=== PATIENT | female | born 1945 | race Caucasian/White ===

== ENCOUNTER 2017-01-03 16:04 | Emergency (ER) | payer MEDICARE ==
[~2017-01-03] VITALS: Ht 170.2 cm; Wt 65.0 kg
[2017-01-03 16:18] VITALS: BP 122/57; PULSE 64; RESP 15; TEMP 98.2; O2SAT 95
--- NOTE | 2017-01-03 17:13 | PD ---
HPI Chief Complaint: Abdominal Pain Time Seen by Provider: 17:13 Travel History International Travel<30 days: No Contact w/Intl Traveler<30days: No Traveled to known affect area: No History of Present Illness HPI 71-year-old female with no significant medical history presents to the emergency department for evaluation. Patient states that [place] the [place] and had barely anything to drink. She went for dinner and had a Sangria. Following this she felt lightheaded. She had to sit down. She states she "just didn't feel right." After fluid resuscitation in route by [facility], the patient states she "feels great." She has also been constipated. She feels that she has had some stomach cramping because of this. Denies any nausea or vomiting. No chest pain or tightness. No difficulty breathing. She is visiting from [place] and is supposed to go home tomorrow. She has no other symptoms reported this time. [facility] Past Medical History Medical History: Denies Significant Hx Social History Alcohol Use: Yes Tobacco Use: No Substance Use: No Allergies-Medications (Allergen,Severity, Reaction): Coded Allergies: Codeine (Verified Allergy, Unknown, 01/03/17) Review of Systems Except as stated in HPI: all other systems reviewed are Neg Physical Exam Narrative GENERAL: Well-nourished female patient, ambulatory and in no acute distress SKIN: Focused skin assessment warm/dry. HEAD: Atraumatic. Normocephalic. EYES: Pupils equal and round. No scleral icterus. No injection or drainage. ENT: No nasal bleeding or discharge. Mucous membranes pink and moist. NECK: Trachea midline. No JVD. CARDIOVASCULAR: Regular rate and rhythm. No murmur appreciated. RESPIRATORY: No accessory muscle use. Clear to auscultation. Breath sounds equal bilaterally. GASTROINTESTINAL: Abdomen soft, non-tender, nondistended. Hepatic and splenic margins not palpable. MUSCULOSKELETAL: No obvious deformities. No clubbing. No cyanosis. No edema. NEUROLOGICAL: Awake and alert. No obvious cranial nerve deficits. Motor grossly within normal limits. Normal speech. PSYCHIATRIC: Appropriate mood and affect; insight and judgment normal. Data Data Last Documented VS Vital Signs Date Time Temp Pulse Resp B/P Pulse Ox O2 Delivery O2 Flow Rate FiO2 01/03/17 16:18 98.2 64 15 122/57 95 Orders Basic Metabolic Panel (Bmp) (01/03/17 17:12) Complete Blood Count With Diff (01/03/17 17:12) Lipase (01/03/17 17:12) Prothrombin Time / Inr (Pt) (01/03/17 17:12) Act Partial Throm Time (Ptt) (01/03/17 17:12) Urinalysis - C+S If Indicated (01/03/17 17:12) Iv Access Insert/Monitor (01/03/17 17:12) Ecg Monitoring (01/03/17 17:12) Oximetry (01/03/17 17:12) Sodium Chloride 0.9% Flush (Ns Flush) (01/03/17 17:15) Electrocardiogram (01/03/17 17:12) Ckmb (Isoenzyme) Profile (01/03/17 17:12) Troponin I (01/03/17 17:12) CKMB (01/03/17 17:10) CKMB% (01/03/17 17:10) Potassium Chloride Powder (Kcl Powder) (01/03/17 18:30) Orthostatic Blood Pressure (01/03/17 18:19) Potassium Chloride (Kcl) (01/03/17 18:45) Labs Laboratory Tests Test 01/03/17 01/03/17 17:10 17:14 White Blood Count 5.8 TH/MM3 Red Blood Count 4.23 MIL/MM3 Hemoglobin 11.8 GM/DL Hematocrit 35.1 % Mean Corpuscular Volume 83.2 FL Mean Corpuscular Hemoglobin 27.9 PG Mean Corpuscular Hemoglobin 33.5 % Concent Red Cell Distribution Width 14.3 % Platelet Count 160 TH/MM3 Mean Platelet Volume 9.6 FL Neutrophils (%) (Auto) 68.7 % Lymphocytes (%) (Auto) 20.5 % Monocytes (%) (Auto) 9.0 % Eosinophils (%) (Auto) 1.2 % Basophils (%) (Auto) 0.6 % Neutrophils # (Auto) 4.0 TH/MM3 Lymphocytes # (Auto) 1.2 TH/MM3 Monocytes # (Auto) 0.5 TH/MM3 Eosinophils # (Auto) 0.1 TH/MM3 Basophils # (Auto) 0.0 TH/MM3 CBC Comment DIFF FINAL Differential Comment Prothrombin Time 10.9 SEC Prothromb Time International 1.0 RATIO Ratio Activated Partial 23.8 SEC Thromboplast Time Sodium Level 144 MEQ/L Potassium Level 2.8 MEQ/L Chloride Level 109 MEQ/L Carbon Dioxide Level 25.1 MEQ/L Anion Gap 10 MEQ/L Blood Urea Nitrogen 15 MG/DL Creatinine 0.71 MG/DL Estimat Glomerular Filtration 81 ML/MIN Rate Random Glucose 92 MG/DL Calcium Level 8.1 MG/DL Total Creatine Kinase 127 U/L Creatine Kinase MB 2.5 NG/ML Troponin I LESS THAN 0.02 NG/ML Lipase 119 U/L Urine Color YELLOW Urine Turbidity CLEAR Urine pH 5.5 Urine Specific [place] 1.018 Urine Protein NEG mg/dL Urine Glucose (UA) NEG mg/dL Urine Ketones NEG mg/dL Urine Occult Blood NEG Urine Nitrite NEG Urine Bilirubin NEG Urine Urobilinogen LESS THAN 2.0 MG/DL Urine Leukocyte Esterase NEG Urine RBC 1 /hpf Urine WBC 1 /hpf Urine Hyaline Casts 2 /lpf Microscopic Urinalysis Comment CULT NOT INDICATED MDM Medical Decision Making Medical Screen Exam Complete: Yes Emergency Medical Condition: Yes Medical Record Reviewed: Yes Differential Diagnosis Electrolyte abnormality versus syncope versus near syncope versus dehydration versus heat exhaustion Narrative Course 71-year-old female presents to the emergency department for evaluation. Patient appears well and without distress. Her vital signs are stable. Exam is benign. Laboratory Tests Test 01/03/17 01/03/17 17:10 17:14 White Blood Count 5.8 TH/MM3 Red Blood Count 4.23 MIL/MM3 Hemoglobin 11.8 GM/DL Hematocrit 35.1 % Mean Corpuscular Volume 83.2 FL Mean Corpuscular Hemoglobin 27.9 PG Mean Corpuscular Hemoglobin 33.5 % Concent Red Cell Distribution Width 14.3 % Platelet Count 160 TH/MM3 Mean Platelet Volume 9.6 FL Neutrophils (%) (Auto) 68.7 % Lymphocytes (%) (Auto) 20.5 % Monocytes (%) (Auto) 9.0 % Eosinophils (%) (Auto) 1.2 % Basophils (%) (Auto) 0.6 % Neutrophils # (Auto) 4.0 TH/MM3 Lymphocytes # (Auto) 1.2 TH/MM3 Monocytes # (Auto) 0.5 TH/MM3 Eosinophils # (Auto) 0.1 TH/MM3 Basophils # (Auto) 0.0 TH/MM3 CBC Comment DIFF FINAL Differential Comment Prothrombin Time 10.9 SEC Prothromb Time International 1.0 RATIO Ratio Activated Partial 23.8 SEC Thromboplast Time Sodium Level 144 MEQ/L Potassium Level 2.8 MEQ/L Chloride Level 109 MEQ/L Carbon Dioxide Level 25.1 MEQ/L Anion Gap 10 MEQ/L Blood Urea Nitrogen 15 MG/DL Creatinine 0.71 MG/DL Estimat Glomerular Filtration 81 ML/MIN Rate Random Glucose 92 MG/DL Calcium Level 8.1 MG/DL Total Creatine Kinase 127 U/L Creatine Kinase MB 2.5 NG/ML Troponin I LESS THAN 0.02 NG/ML Lipase 119 U/L Urine Color YELLOW Urine Turbidity CLEAR Urine pH 5.5 Urine Specific [place] 1.018 Urine Protein NEG mg/dL Urine Glucose (UA) NEG mg/dL Urine Ketones NEG mg/dL Urine Occult Blood NEG Urine Nitrite NEG Urine Bilirubin NEG Urine Urobilinogen LESS THAN 2.0 MG/DL Urine Leukocyte Esterase NEG Urine RBC 1 /hpf Urine WBC 1 /hpf Urine Hyaline Casts 2 /lpf Microscopic Urinalysis Comment CULT NOT INDICATED CBC is without acute concern. BMP is hypokalemia 2.8. This is repleted with 60 mEq of potassium. Otherwise BMP is without acute concern. I discussed the patient my attending physician Dr. Huffman who also assessed the patient and reviewed lab findings. Patient will be discharged home with potassium prescription. She agrees to return immediately with any acute worsening of symptoms. Diagnosis Primary Impression: Syncope, near Additional Impression: Hypokalemia Referrals: Primary Care Physician Patient Instructions: General Instructions, Hypokalemia (ED) Additional Instructions: Follow-up with your primary care provider Repeat potassium in 2-3 days Maintain adequate oral hydration Return immediately with any acute worsening of symptoms Med/Other Pt SpecificInfo: Prescription(s) given Disposition: 01 DISCHARGE HOME Condition: Stable Christina Espinoza DAWNA Jan 03, 2017 17:13
[2017-01-03] MEDS ORDERED: SODIUM CHLORIDE 0.9% FLUSH 10 ML FLUSH IV FLUSH PRN (17:15)
[2017-01-03 17:38] LABS: BLOOD, URINE NEG (NEG); COMMENT (UR) CULT NOT INDICATED; CULTURE IF INDICATED CULT NOT INDICATED; GLUCOSE,URINE NEG (NEG); HYALINE CAST, URINE 2 /lpf (RARE); KETONE, URINE NEG (NEG); NITRITE,URINE NEG (NEG); PH, URINE 5.5 (5.0-8.5); URINE COLOR YELLOW (YELLW/STRAW)
[2017-01-03 17:39] LABS: BASOPHIL % 0.6 % (0.0-2.0); EOSINOPHIL # 0.1 TH/MM3 (0-0.4); EOSINOPHIL % 1.2 % (0.0-4.0); HEMATOCRIT 35.1 % (35.0-46.0); HEMO FLAGS DIFF FINAL; LYMPH % 20.5 % (9.0-44.0); LYMPHOCYTE # 1.2 TH/MM3 (1.0-4.8); MEAN CELL VOLUME 83.2 FL (80.0-100.0); MEAN CORPUSCULAR HEMOGLOBIN 27.9 PG (27.0-34.0); MEAN CORPUSCULAR HGB CONC 33.5 % (32.0-36.0); NEUT % 68.7 % (16.0-70.0); PLATELET COUNT 160 TH/MM3 (150-450); RED BLOOD COUNT 4.23 MIL/MM3 (4.00-5.30); RED CELL DISTRIBUTION WIDTH 14.3 % (11.6-17.2); WHITE BLOOD COUNT 5.8 TH/MM3 (4.0-11.0)
[2017-01-03 17:48] LABS: APTT (PATIENT) 23.8 SEC (24.3-30.1); PROTHROMBIN TIME - PATIENT 10.9 SEC (9.8-11.6)
[2017-01-03 17:57] LABS: ANION GAP 10 MEQ/L (5-15); BICARBONATE 25.1 MEQ/L (21.0-32.0); BLOOD UREA NITROGEN 15 MG/DL (7-18); CHLORIDE 109 MEQ/L (98-107); GLOMERULAR FILTRATION RATE 81 ML/MIN (>89); SODIUM (NA) 144 MEQ/L (136-145)
[2017-01-03 17:58] LABS: CREATINE KINASE 127 U/L (26-192)
[2017-01-03 18:15] LABS: POTASSIUM 2.8 MEQ/L (3.5-5.1)
[2017-01-03 18:30] LABS: CKMB 2.5 NG/ML (0.5-3.6)
[2017-01-03] MEDS ORDERED: POTASSIUM CHLORIDE 20 MEQ PWD PACKET PO ONE (18:30)
[2017-01-03] MEDS ORDERED: POTA10TA2 PO (18:37)
--- NOTE | 2017-01-03 18:37 | PD ---
Data Data Last Documented VS Vital Signs Date Time Temp Pulse Resp B/P Pulse Ox O2 Delivery O2 Flow Rate FiO2 01/03/17 16:18 98.2 64 15 122/57 95 Orders Basic Metabolic Panel (Bmp) (01/03/17 17:12) Complete Blood Count With Diff (01/03/17 17:12) Lipase (01/03/17 17:12) Prothrombin Time / Inr (Pt) (01/03/17 17:12) Act Partial Throm Time (Ptt) (01/03/17 17:12) Urinalysis - C+S If Indicated (01/03/17 17:12) Iv Access Insert/Monitor (01/03/17 17:12) Ecg Monitoring (01/03/17 17:12) Oximetry (01/03/17 17:12) Sodium Chloride 0.9% Flush (Ns Flush) (01/03/17 17:15) Electrocardiogram (01/03/17 17:12) Ckmb (Isoenzyme) Profile (01/03/17 17:12) Troponin I (01/03/17 17:12) CKMB (01/03/17 17:10) CKMB% (01/03/17 17:10) Potassium Chloride Powder (Kcl Powder) (01/03/17 18:30) Orthostatic Blood Pressure (01/03/17 18:19) Potassium Chloride (Kcl) (01/03/17 18:45) Labs Laboratory Tests Test 01/03/17 01/03/17 17:10 17:14 White Blood Count 5.8 TH/MM3 Red Blood Count 4.23 MIL/MM3 Hemoglobin 11.8 GM/DL Hematocrit 35.1 % Mean Corpuscular Volume 83.2 FL Mean Corpuscular Hemoglobin 27.9 PG Mean Corpuscular Hemoglobin 33.5 % Concent Red Cell Distribution Width 14.3 % Platelet Count 160 TH/MM3 Mean Platelet Volume 9.6 FL Neutrophils (%) (Auto) 68.7 % Lymphocytes (%) (Auto) 20.5 % Monocytes (%) (Auto) 9.0 % Eosinophils (%) (Auto) 1.2 % Basophils (%) (Auto) 0.6 % Neutrophils # (Auto) 4.0 TH/MM3 Lymphocytes # (Auto) 1.2 TH/MM3 Monocytes # (Auto) 0.5 TH/MM3 Eosinophils # (Auto) 0.1 TH/MM3 Basophils # (Auto) 0.0 TH/MM3 CBC Comment DIFF FINAL Differential Comment Prothrombin Time 10.9 SEC Prothromb Time International 1.0 RATIO Ratio Activated Partial 23.8 SEC Thromboplast Time Sodium Level 144 MEQ/L Potassium Level 2.8 MEQ/L Chloride Level 109 MEQ/L Carbon Dioxide Level 25.1 MEQ/L Anion Gap 10 MEQ/L Blood Urea Nitrogen 15 MG/DL Creatinine 0.71 MG/DL Estimat Glomerular Filtration 81 ML/MIN Rate Random Glucose 92 MG/DL Calcium Level 8.1 MG/DL Total Creatine Kinase 127 U/L Creatine Kinase MB 2.5 NG/ML Troponin I LESS THAN 0.02 NG/ML Lipase 119 U/L Urine Color YELLOW Urine Turbidity CLEAR Urine pH 5.5 Urine Specific [place] 1.018 Urine Protein NEG mg/dL Urine Glucose (UA) NEG mg/dL Urine Ketones NEG mg/dL Urine Occult Blood NEG Urine Nitrite NEG Urine Bilirubin NEG Urine Urobilinogen LESS THAN 2.0 MG/DL Urine Leukocyte Esterase NEG Urine RBC 1 /hpf Urine WBC 1 /hpf Urine Hyaline Casts 2 /lpf Microscopic Urinalysis Comment CULT NOT INDICATED MDM Medical Record Reviewed: Yes Supervised Visit with ANNMARIE: Yes Narrative Course I, Dr. Huffman, have reviewed the advance practice practitioner's documentation and am in agreement unless documented below, met with the patient face to face, made the diagnosis, and the medical decision making was done by me. *My assessment and Findings: EKG reveals a sinus rhythm at a rate of [address] changes CBC & BMP Diagram 01/03/17 17:10 The patient received 60 mEq potassium. Patient had 1700 cc crystalloid en route to the ER. She was reassessed by me about 6:30 PM and was resting comfortably in bed using her scar. She Had No Complaint. Patient ambulated throughout the trauma upon without any difficulty. She has a primary care provider, and a copy of her EKG. She'll follow-up upon returning home. Potassium prescription. She is ready for discharge. Diagnosis Primary Impression: Syncope, near Additional Impression: Hypokalemia Referrals: Primary Care Physician 2 days Additional Instruction: You have a choice when it comes to health care, and we are glad that you chose [facility]. Hopefully, we have met your expectations on today's visit. You are welcome to return to [facility] at any time, as we are committed to meeting the health care needs of our community. Med/Other Pt SpecificInfo: Prescription(s) given Scripts Potassium Chloride ER 10 Meq Tab10 Meq PO BID 5 Days Ref 0 Prov:Brayan Huffman MD 01/03/17 Disposition: 01 DISCHARGE HOME Condition: Stable Brayan Huffman MD Jan 03, 2017 18:37
[2017-01-03 18:44] VITALS: BP 128/64
[2017-01-03] MEDS ORDERED: POTASSIUM CHLORIDE 20 MEQ CONTROLLED RELEASE TAB PO ONE (18:45)
--- NOTE | 2017-01-04 18:43 | EKG ---
Date Performed: 01/03/2017 Time Performed: 17:28:13 PTAGE: 71 years EKG: Sinus rhythm NONSPECIFIC ST & T-WAVE ABNORMALITY ABNORMAL ECG NO PREVIOUS TRACING DOCTOR: Juan Lopez Interpretating Date/Time 01/04/2017 18:40:20
== END 2017-01-03 18:55 | disposition home or self-care (01) ==
LOC: NEDAMB 16:04
DX: R55 Syncope and collapse (principal); E87.6 Hypokalemia; R94.31 Abnormal electrocardiogram [ECG] [EKG]
CPT/HCPCS: 80048; 81001; 82550; 82552; 83690; 84484; 85025; 85610; 85730; 93005